=== PATIENT | female | born 1960 | race Caucasian/White ===

== ENCOUNTER → 2020-08-03 | Outpatient (CLI) | payer SELFPAY ==
[2020-08-04 14:13] LABS: ALDOLASE 23.1 U/L (3.3-10.3)
[2020-08-05 00:08] LABS: RHEUMATOID ARTHRITIS FACTOR 13.9 IU/mL (0.0-13.9)
== END ==
LOC: LAB 13:44
PROVIDERS: Internal Medicine
DX: D89.89 Other specified disorders involving the immune mechanism, not elsewhere classified (principal); M25.50 Pain in unspecified joint; M79.10 Myalgia, unspecified site; R76.8 Other specified abnormal immunological findings in serum
CPT/HCPCS: 36415; 82085; 82550; 83520; 86200; 86431

== ENCOUNTER → 2020-09-28 | Outpatient (CLI) | payer SELFPAY | LOC: LAB 16:26 | PROVIDERS: Internal Medicine | DX: M79.10 Myalgia, unspecified site (principal); M32.9 Systemic lupus erythematosus, unspecified; R76.8 Other specified abnormal immunological findings in serum; R76.0 Raised antibody titer | CPT/HCPCS: 36415; 82085; 82550; 83615; 83874; 86235 ==

== ENCOUNTER → 2021-01-27 | Outpatient (CLI) | payer OTHER | LOC: HEART 5 11:16 | DX: R06.00 Dyspnea, unspecified (principal); R94.2 Abnormal results of pulmonary function studies | CPT/HCPCS: 94060; 94729 ==

== ENCOUNTER → 2021-02-02 | Outpatient (CLI) | payer OTHER | LOC: KOH-I 15:02 | DX: R94.2 Abnormal results of pulmonary function studies (principal); M32.9 Systemic lupus erythematosus, unspecified; I31.3 Pericardial effusion (noninflammatory) | CPT/HCPCS: 71250 ==